=== PATIENT | male | born 1960 | race Caucasian/White ===

== ENCOUNTER 2019-04-11 07:24 | Inpatient (IN) | payer MEDICAID ==
[~2019-04-11] VITALS: Ht 165.1 cm; Wt 70.3 kg
[2019-04-11] VITALS (7 sets, daily range): BP systolic 109–146; BP diastolic 65–90
[~2019-04-11 07:24] MED LIST: ALBU05; AMLO5TAB4; CHLO25CA10 PO; CLON0.2T12; FOLI-43; GABA300C; NAP5EC
[2019-04-11 09:45] LABS: HEMATOCRIT 37.2 % (42.0-52.0); HEMOGLOBIN 12.3 g/dL (14.0-18.0); MEAN CORPUSCULAR HEMOGLOBIN 34.8 pg (28.0-32.0); MEAN CORPUSCULAR VOLUME 104.8 fL (80.0-94.0); PLATELET 205 x1000/uL (130-400); RED BLOOD CELL COUNT 3.55 mill/uL (4.7-6.1); RED CELL DISTRIBUTION WIDTH 14.6 % (11.6-14.6)
[2019-04-11 09:51] LABS: CHLORIDE 106 mEq/L (98-107)
[2019-04-11 09:54] LABS: INR 1.3; PARTIAL THROMBOPLASTIN TIME 28.7 sec (23.4-31.0); PROTHROMBIN TIME 13.5 sec (9.6-11.0)
[2019-04-11] MEDS ORDERED: FUROSEMIDE 40MG TABLET PO ONE (10:30)
[2019-04-11] MEDS ORDERED: METOLAZONE 5MG TABLET PO NR (10:30)
[2019-04-11] MEDS ORDERED: CARV12.545 MT (10:32)
[2019-04-11] MEDS ORDERED: HYDR-4009 MT (10:32)
[2019-04-11] MEDS ORDERED: LORA0.5T2 MT (10:32)
[2019-04-11] MEDS ORDERED: FURO40TA5 MT (10:32)
[2019-04-11] MEDS ORDERED: MAGN400C MT (10:32)
[2019-04-11] MEDS ORDERED: GABA-531 MT (10:32)
[2019-04-11] MEDS ORDERED: GABAPENTIN 300MG CAPSULE PO NR (11:00)
[2019-04-11] MEDS ORDERED: FUROSEMIDE 20MG/2ML VIAL ONE (11:12)
[2019-04-11] MEDS: FUROSEMIDE 40MG/4ML VIAL IVP NR (11:24)
[2019-04-11] MEDS ORDERED: KCL 20MEQ/100ML PREMIX 100 ML IV ONE (12:52)
[2019-04-11] MEDS ORDERED: KCL 20MEQ/100ML PREMIX 100 ML IV STA (12:56)
[2019-04-11] MEDS ORDERED: CYCL10TA7 PO (15:01)
[2019-04-11] MEDS ORDERED: POTASSIUM CHLORIDE 20MEQ TABLET SR PO NR (15:45)
[2019-04-11] MEDS: FUROSEMIDE 40MG/4ML VIAL IVP SCH (16:39)
[2019-04-11 16:58] LABS: ETHANOL BLOOD < 10 mg/dL
[2019-04-11] MEDS ORDERED: ASPI-1079 PO (17:40)
[2019-04-11] MEDS ORDERED: THIA100T72 PO (17:42)
[2019-04-11] MEDS ORDERED: LISI-186 MT (17:44)
[2019-04-11] MEDS ORDERED: POTA10TA11 MT (17:44)
[2019-04-11] MEDS ORDERED: MAGNESIUM 2 G PREMIX 50 ML IV NR (20:00)
[2019-04-11] MEDS: CARVEDILOL 12.5MG TABLET PO SCH (20:50)
[2019-04-11] MEDS: HYDROCODONE/ACETAMINOPHEN 5/325MG TABLET PO PRN (20:51)
[2019-04-12] VITALS (12 sets, daily range): BP systolic 92–114; BP diastolic 53–86
[2019-04-12 06:37] LABS: HEMATOCRIT. 34.2 % (42.0-52.0); HEMOGLOBIN. 11.6 g/dL (14.0-18.0); MEAN CORPUSCULAR HEMOGLOBIN 35.3 pg (28.0-32.0); MEAN CORPUSCULAR VOLUME 104.4 fL (80.0-94.0); MEAN PLATELET VOLUME 8.8 fl (7.4-10.4); PLATELET 215 x1000/uL (130-400); RED BLOOD CELL COUNT 3.27 mill/uL (4.7-6.1); RED CELL DISTRIBUTION WIDTH 14.7 % (11.6-14.6)
[2019-04-12 07:14] LABS: CHLORIDE 102 mEq/L (98-107)
[2019-04-12 07:35] LABS: HDL CHOLESTEROL 34 mg/dL (40-59); LDL CHOLESTEROL 82 mg/dL (5-100)
[2019-04-12] MEDS ORDERED: POTASSIUM CHLORIDE 20MEQ TABLET SR PO NR (08:00)
[2019-04-12] MEDS ORDERED: MAGNESIUM 4 G PREMIX 100 ML IV NR (08:00)
[2019-04-12] MEDS: FUROSEMIDE 40MG/4ML VIAL IVP SCH ×2 (08:18→17:34)
[2019-04-12] MEDS: CARVEDILOL 12.5MG TABLET PO SCH ×2 (08:19→21:07)
[2019-04-12] MEDS ORDERED: IPRATROPIUM/ALBUTEROL 0.5-3(2.5)MG/3ML NEB HHN PRN (11:15)
[2019-04-12] MEDS: HYDROCODONE/ACETAMINOPHEN 5/325MG TABLET PO PRN ×2 (11:15→18:03)
[2019-04-12] MEDS: LISINOPRIL 5MG TABLET PO SCH (12:39)
[2019-04-12 20:44] LABS: NUCLEATED RED BLOOD CELLS 1 /100 WBC; PLATELET ESTIMATE NORMAL
[2019-04-12] MEDS: ZOLPIDEM TARTRATE 5MG TABLET PO PRN (22:25)
[2019-04-13] VITALS (12 sets, daily range): BP systolic 92–109; BP diastolic 58–82
[2019-04-13 07:15] LABS: BASOPHILS % 0.8 % (0.0-2.0); EOSINOPHILS % 1.4 % (0.0-5.0); HEMATOCRIT. 32.9 % (42.0-52.0); LYMPHOCYTES % 10.4 % (20.0-50.0); MEAN CORPUSCULAR HEMOGLOBIN 35.1 pg (28.0-32.0); MEAN CORPUSCULAR VOLUME 105.1 fL (80.0-94.0); MONOCYTES % 12.8 % (2.0-8.0); NEUTROPHILS % 74.6 % (40.0-76.0); PLATELET 241 x1000/uL (130-400); RED BLOOD CELL COUNT 3.13 mill/uL (4.7-6.1); RED CELL DISTRIBUTION WIDTH 14.2 % (11.6-14.6)
[2019-04-13] MEDS: FUROSEMIDE 40MG/4ML VIAL IVP SCH ×2 (08:01→18:08)
[2019-04-13 08:04] LABS: CHLORIDE 100 mEq/L (98-107)
[2019-04-13] MEDS: SPIRONOLACTONE 25MG TABLET PO SCH (09:00)
[2019-04-13] MEDS: POTASSIUM CHLORIDE 20MEQ TABLET SR PO SCH (09:00)
[2019-04-13] MEDS: LISINOPRIL 5MG TABLET PO SCH (09:00)
[2019-04-13] MEDS: CARVEDILOL 12.5MG TABLET PO SCH ×2 (09:00→21:00)
[2019-04-13] MEDS: ACETAMINOPHEN 500MG TABLET PO PRN (13:51)
[2019-04-13] MEDS: ZOLPIDEM TARTRATE 5MG TABLET PO PRN (21:56)
[2019-04-14] VITALS (23 sets, daily range): BP systolic 96–142; BP diastolic 48–78
[2019-04-14] MEDS: GABAPENTIN 300MG CAPSULE PO SCH ×3 (02:40→21:50)
[2019-04-14] MEDS ORDERED: FENTANYL CITRATE/PF 50MCG/ML 2ML VIAL ONE (07:19)
[2019-04-14 07:20] LABS: BASOPHILS % 0.9 % (0.0-2.0); EOSINOPHILS % 2.6 % (0.0-5.0); HEMATOCRIT. 38.9 % (42.0-52.0); HEMOGLOBIN. 13.1 g/dL (14.0-18.0); LYMPHOCYTES % 11.5 % (20.0-50.0); MEAN CORPUSCULAR HEMOGLOBIN 34.9 pg (28.0-32.0); MEAN CORPUSCULAR VOLUME 103.4 fL (80.0-94.0); MEAN PLATELET VOLUME 8.8 fl (7.4-10.4); MONOCYTES % 13.4 % (2.0-8.0); NEUTROPHILS % 71.6 % (40.0-76.0); PLATELET 309 x1000/uL (130-400); RED BLOOD CELL COUNT 3.76 mill/uL (4.7-6.1); RED CELL DISTRIBUTION WIDTH 14.3 % (11.6-14.6)
[2019-04-14] MEDS ORDERED: EPHEDRINE SULFATE 50MG/ML VIAL ONE (07:20)
[2019-04-14] MEDS ORDERED: ETOMIDATE 2MG/ML 10ML VIAL IV ONE (07:20)
[2019-04-14] MEDS ORDERED: LIDOCAINE HCL/PF 1% 10 MG/ML 5ML VIAL ONE (07:20)
[2019-04-14] MEDS ORDERED: DEXAMETHASONE 4MG/ML 1ML VIAL ONE (07:20)
[2019-04-14] MEDS ORDERED: SUCCINYLCHOLINE CHLORIDE 200MG/10ML IV ONE (07:20)
[2019-04-14] MEDS ORDERED: ROCURONIUM BROMIDE 10MG/ML VIAL 5ML IV ONE (07:21)
[2019-04-14] MEDS ORDERED: MIDAZOLAM HCL 2 MG/2 ML VIAL ONE (07:21)
[2019-04-14] MEDS ORDERED: PHENYLEPHRINE HCL 10 MG/ML 1ML (IV VIAL) IV ONE (07:22)
[2019-04-14] MEDS ORDERED: IODIXANOL 320MG/ML 100 ML BOTTLE IV ONE (07:24)
[2019-04-14] MEDS ORDERED: GENTAMICIN SULF 40MG/ML 2ML VIAL ONE (07:24)
[2019-04-14] MEDS ORDERED: LIDOCAINE HCL 1% 20ML VIAL (Pyxis) INJ ONE (07:25)
[2019-04-14] MEDS ORDERED: GENTAMICIN/NS IRRIGATION 500 ML IR ONE (07:25)
[2019-04-14 07:31] LABS: CHLORIDE 94 mEq/L (98-107)
[2019-04-14] MEDS ORDERED: MAGNESIUM 2 G PREMIX 50 ML IV ONE (08:15)
[2019-04-14] MEDS ORDERED: ESMOLOL HCL 10MG/ML 10ML VIAL IV ONE (08:20)
[2019-04-14] MEDS ORDERED: SODIUM CHLORIDE 0.9% 10ML VIAL ONE (08:27)
[2019-04-14] MEDS ORDERED: CEFAZOLIN SODIUM 1000MG/VIAL ONE (08:27)
[2019-04-14] MEDS ORDERED: MAGNESIUM 2 G PREMIX 50 ML IV NR (09:00)
[2019-04-14] MEDS: CARVEDILOL 12.5MG TABLET PO SCH ×2 (09:00→21:51)
[2019-04-14] MEDS ORDERED: KCL 20MEQ/100ML PREMIX 100 ML IV SCH (09:00)
[2019-04-14] MEDS: LISINOPRIL 5MG TABLET PO SCH (09:00)
[2019-04-14] MEDS ORDERED: METOCLOPRAMIDE HCL 10MG/2ML VIAL ONE (11:03)
[2019-04-14] MEDS ORDERED: ONDANSETRON HCL 4MG/2ML INJ ONE (11:03)
[2019-04-14] MEDS ORDERED: HYDROMORPHONE HCL/PF 2MG/ML CPJ IV PRN (11:30)
[2019-04-14] MEDS: ACETAMINOPHEN 500MG TABLET PO PRN (12:25)
[2019-04-14] MEDS: POTASSIUM CHLORIDE 20MEQ TABLET SR PO SCH (16:43)
[2019-04-14] MEDS: SPIRONOLACTONE 25MG TABLET PO SCH (16:49)
[2019-04-14] MEDS: HYDROCODONE/ACETAMINOPHEN 5/325MG TABLET PO PRN ×2 (16:49→23:17)
[2019-04-15] VITALS (12 sets, daily range): BP systolic 88–127; BP diastolic 44–77
[2019-04-15] MEDS: ZOLPIDEM TARTRATE 5MG TABLET PO PRN ×2 (01:12→23:12)
[2019-04-15] MEDS: GABAPENTIN 300MG CAPSULE PO SCH ×3 (05:13→22:36)
[2019-04-15 06:56] LABS: HEMATOCRIT. 42.4 % (42.0-52.0); HEMOGLOBIN. 14.2 g/dL (14.0-18.0); MEAN CORPUSCULAR HEMOGLOBIN 35.3 pg (28.0-32.0); MEAN CORPUSCULAR VOLUME 105.7 fL (80.0-94.0); RED BLOOD CELL COUNT 4.01 mill/uL (4.7-6.1); RED CELL DISTRIBUTION WIDTH 14.5 % (11.6-14.6)
[2019-04-15 06:58] LABS: CHLORIDE 98 mEq/L (98-107)
[2019-04-15] MEDS: POTASSIUM CHLORIDE 20MEQ TABLET SR PO SCH (09:10)
[2019-04-15] MEDS: CARVEDILOL 12.5MG TABLET PO SCH ×2 (09:12→21:00)
[2019-04-15] MEDS: SPIRONOLACTONE 25MG TABLET PO SCH (09:12)
[2019-04-15] MEDS: HYDROCODONE/ACETAMINOPHEN 5/325MG TABLET PO PRN ×2 (09:12→21:09)
[2019-04-15] MEDS: LISINOPRIL 5MG TABLET PO SCH (09:13)
[2019-04-15] MEDS: FUROSEMIDE 40MG/4ML VIAL IVP SCH (09:13)
[2019-04-15 09:21] LABS: MEAN PLATELET VOLUME 8.7 fl (7.4-10.4); PLATELET 307 x1000/uL (130-400); PLATELET ESTIMATE NORMAL
[2019-04-15] MEDS ORDERED: MAGNESIUM 2 G PREMIX 50 ML IV NR (12:30)
[2019-04-15] MEDS: VANCOMYCIN 1 G PREMIX 200 ML IV SCH (17:13)
[2019-04-15 17:49] LABS: CLARITY URINE CLEAR (CLEAR); COLOR URINE DARK YELLOW (YELLOW); KETONES URINE NEGATIVE (NEGATIVE); LEUKOCYTE ESTERASE URINE TRACE (NEGATIVE); NITRITE URINE NEGATIVE (NEGATIVE); OCCULT BLOOD URINE NEGATIVE (NEGATIVE); PROTEIN URINE NEGATIVE (NEGATIVE); SPECIFIC GRAVITY URINE 1.019 (1.005-1.030)
[2019-04-16] VITALS (8 sets, daily range): BP systolic 91–118; BP diastolic 44–81
[2019-04-16] MEDS: HYDROCODONE/ACETAMINOPHEN 5/325MG TABLET PO PRN ×3 (01:42→11:02)
[2019-04-16] MEDS: VANCOMYCIN 1 G PREMIX 200 ML IV SCH (05:26)
[2019-04-16] MEDS: GABAPENTIN 300MG CAPSULE PO SCH (06:17)
[2019-04-16 06:51] LABS: HEMATOCRIT. 39.1 % (42.0-52.0); HEMOGLOBIN. 13.1 g/dL (14.0-18.0); MEAN CORPUSCULAR HEMOGLOBIN 35.5 pg (28.0-32.0); MEAN CORPUSCULAR VOLUME 106.1 fL (80.0-94.0); MEAN PLATELET VOLUME 8.6 fl (7.4-10.4); PLATELET 293 x1000/uL (130-400); RED BLOOD CELL COUNT 3.68 mill/uL (4.7-6.1); RED CELL DISTRIBUTION WIDTH 14.4 % (11.6-14.6)
[2019-04-16 07:45] LABS: CHLORIDE 96 mEq/L (98-107)
[2019-04-16] MEDS: FUROSEMIDE 40MG/4ML VIAL IVP SCH (08:42)
[2019-04-16] MEDS: CARVEDILOL 12.5MG TABLET PO SCH (08:43)
[2019-04-16] MEDS: LISINOPRIL 5MG TABLET PO SCH (08:43)
[2019-04-16] MEDS: SPIRONOLACTONE 25MG TABLET PO SCH (08:43)
[2019-04-16 11:39] LABS: PLATELET ESTIMATE NORMAL
== END 2019-04-16 16:35 | disposition home or self-care (01) | DRG 161 ==
LOC: CCL 07:24 → 3WST 07:25
PROVIDERS: ADMIT Internal Medicine Clinical Cardiac Electrophysiology; ATTEND Internal Medicine Clinical Cardiac Electrophysiology
PROC: 0JH609Z Insertion of Cardiac Resynchronization Defibrillator Pulse Generator into Chest Subcutaneous Tissue and Fascia, Open Approach (ICD-10-PCS; principal; 2019-04-14)
PROC: 02H43KZ Insertion of Defibrillator Lead into Coronary Vein, Percutaneous Approach (ICD-10-PCS; 2019-04-14)
PROC: 4A023N6 Measurement of Cardiac Sampling and Pressure, Right Heart, Percutaneous Approach (ICD-10-PCS; 2019-04-14)
PROC: B5171ZZ Fluoroscopy of Left Subclavian Vein using Low Osmolar Contrast (ICD-10-PCS; 2019-04-14)
PROC: 02H63KZ Insertion of Defibrillator Lead into Right Atrium, Percutaneous Approach (ICD-10-PCS; 2019-04-14)
PROC: 02HK3KZ Insertion of Defibrillator Lead into Right Ventricle, Percutaneous Approach (ICD-10-PCS; 2019-04-14)
DX: I11.0 Hypertensive heart disease with heart failure (principal); I27.21 Secondary pulmonary arterial hypertension; I42.0 Dilated cardiomyopathy; E83.42 Hypomagnesemia; F20.9 Schizophrenia, unspecified; E87.1 Hypo-osmolality and hyponatremia; I42.9 Cardiomyopathy, unspecified; I50.23 Acute on chronic systolic (congestive) heart failure; D72.829 Elevated white blood cell count, unspecified; E78.5 Hyperlipidemia, unspecified; E87.6 Hypokalemia; I44.7 Left bundle-branch block, unspecified; J44.9 Chronic obstructive pulmonary disease, unspecified; Z79.899 Other long term (current) drug therapy; Z87.442 Personal history of urinary calculi
CPT/HCPCS: 33225; 33249; 36415; 71045; 75820; 80048; 80061; 80320; 82962; 83735; 83880; 84132; 84443; 85027; 93005; 93306; 93451; 93641; 97162; A4565; C1758; C1769; C1882; C1887; C1892; C1893; C1898; C1899; C1900; J0330; J0690; J1100; J1580; J1644; J1940; J2250; J2370; J2405; J2765; J3010; J3370; J3475; J3480; J3490; J7040; J7050; Q9967; G0480